=== PATIENT | female | born 1930 | race Caucasian/White ===

== ENCOUNTER 2016-09-18 09:20 | Emergency (ER) | payer OTHER, MEDICARE ==
--- NOTE | 2016-09-18 09:31 | PDOC ---
History of Present Illness - General Chief Complaint: Chest Pain Stated Complaint: CHEST PAIN Time Seen by Provider: 09/18/16 09:30 - History of Present Illness Initial Comments: 09/18/16 10:05 Chief complaint: Chest pain and dizziness History of present illness: Patient states that she woke up this morning feeling a little lightheaded, but this resolved almost immediately. She denies having had any chest pain, but it was reported by the staff at her facility that she had initially complained of chest pain. Ambulance personnel state that when they arrived there was no pain Review of systems: The patient suffers from dementia but appears able to convey her symptoms adequately. As noted above, she states that she felt some momentary dizziness when she woke up with this resolved almost immediately. States that she had no further symptoms. Specifically, denies chest pain, shortness of breath, abdominal pain, nausea, vomiting, diarrhea, visual or focal neurologic symptoms, unsteadiness of gait. She denies recent illnesses including URI symptoms, sore throat, cough. Past medical history: High blood pressure, COPD , Alzheimer's dementia, depression, uterine cancer, appendectomy. Social history: Assisted living facility, has her own residence, eats meals communally, daughter lives nearby and visits frequently, no past or present use of tobacco alcohol or nonprescription drugs. Family history: Reviewed and noncontributory Physical exam: Mildly confused but awake, fully cooperative, and cheerful. No acute distress Afebrile, vital signs normal PERRLA, fundi benign, ENT clear Neck supple without bruit mass or nodes Lungs clear to P&A bilaterally CV S1 and S2 normal without murmur rub or gallop pulses full and symmetric no JVD or edema no bruits Abdomen soft nontender without mass or organomegaly. Nondistended. Bowel sounds normal Extremities no CCE Skin clear, no rash, adequate turgor and what mucous membranes Neurological C2 to 12 intact. Strength full and symmetric. No focal sensory or motor deficits. Gait stable and unimpaired Impression: Brief episode this morning of possible lightheadedness and chest pain. However, because of patient's dementia, history may be questionable. At present, the patient looks fine and denies any symptoms. Plan: EKG and enzymes, CBC and chemistries, chest x-ray, further medical management depending on results. Observe. 09/18/16 10:12 Past History - Past Medical History Allergies/Adverse Reactions: Allergies Allergy/AdvReac Type Severity Reaction Status Date / Time Penicillins Allergy Verified 09/18/16 09:28 Home Medications: Ambulatory Orders Memantine HCl [Namenda -] 10 mg PO BID 02/18/14 Albuterol Sulfate [Proair Respiclick] 90 mcg IH PRN PRN 01/04/16 Ascorbate Calcium [Vitamin C] 500 mg PO DAILY 01/04/16 Aspirin [ASA -] 81 mg PO HS 01/04/16 Atenolol [Tenormin -] 50 mg PO DAILY 01/04/16 Cyanocobalamin (Vitamin B-12) [Vitamin B-12] 1,000 mcg PO DAILY 01/04/16 Desvenlafaxine Succinate [Pristiq ER] 50 mg PO DAILY 01/04/16 Levofloxacin [Levaquin] 500 mg PO DAILY 01/04/16 Melatonin/Pyridoxine [Melatonin 3 mg Tablet] 1 each PO HS 01/04/16 Mirtazapine 30 mg PO DAILY 01/04/16 Multivitamins [Tab-A-Vit -] 1 tab PO DAILY 01/04/16 [place]-3S/Dha/Epa/Fish Oil [Fish Oil 1,200 mg Softgel] 1 each PO DAILY 01/04/16 Prednisone 10 mg PO AM #21 tablet 01/04/16 Cancer: Yes (ENDOMETRIAL CANCER) Cardiac Disorders: Yes (PALPITATIONS) Dementia: Yes - Surgical History Appendectomy: Yes - Psycho/Social/Smoking Cessation Hx Anxiety: Yes Suicidal Ideation: No Smoking History: Never smoked Have you smoked in the past 12 months: No Hx Alcohol Use: No Drug/Substance Use Hx: No Substance Use Type: None *Physical Exam - Vital Signs Last Vital Signs Temp Pulse Resp BP Pulse Ox 98.2 F 74 18 130/72 96 09/18/16 09:21 09/18/16 09:21 09/18/16 09:21 09/18/16 09:21 09/18/16 09:21 ED Treatment Course - LABORATORY CBC & Chemistry Diagram: 09/18/16 09:33 09/18/16 09:33 - ADDITIONAL ORDERS Additional order review: Laboratory Results 09/18/16 09/18/16 09:33 09:33 Sodium 138 Potassium 4.0 Chloride 101 Carbon Dioxide 26 Anion Gap 11 BUN 16 D Creatinine 0.7 Creat Clearance w eGFR > 60 Random Glucose 114 H Calcium 8.9 Total Bilirubin 0.2 D AST 22 D ALT 22 D Alkaline Phosphatase 60 Creatine Kinase 126 Troponin I < 0.03 L Total Protein 6.3 L Albumin 3.6 09/18/16 09:33 RBC 4.45 MCV 88.2 MCHC 31.8 L RDW 13.1 MPV 8.2 Neutrophils % 65.9 Lymphocytes % 22.3 D Monocytes % 10.0 Eosinophils % 1.4 D Basophils % 0.4 - RADIOLOGY Radiology Studies Ordered: Category Date Time Status CHEST X-RAY PORTABLE* [RAD] Stat Radiology 09/18/16 09:31 Completed Medical Decision Making - Medical Decision Making 09/18/16 10:31 EKG reviewed: Normal sinus rhythm 73/m. Normal axes and intervals. No ST-T wave changes. Borderline left atrial enlargement. Otherwise normal EKG. No ischemic changes. Chest x-ray: No acute disease. No change from prior Laboratories: CBC and chemistries no significant abnormalities. Cardiac enzymes negative Patient remains asymptomatic, vital signs stable, without complaint upon observation. Discharged back to senior care to follow-up as needed. 09/18/16 11:38 *DC/Admit/Observation/Transfer Diagnosis at time of Disposition: Non-cardiac chest pain - Discharge Dispostion Disposition: HOME Condition at time of disposition: Improved Admit: No - Referrals Referrals: Patrick Rene MD [Staff Physician] - - Patient Instructions Printed Discharge Instructions: DI for Atypical Chest Pain
[2016-09-18 09:38] VITALS: TEMP 98.2; BMI 20.5
[2016-09-18 10:12] LABS: ALBUMIN 3.6 g/dl (3.5-5.0); ALK PHOS 60 U/L (32-92); ANION GAP 11 (8-16); BILIRUBIN,TOTAL 0.2 mg/dl (0.2-1.0); CALCIUM 8.9 mg/dl (8.4-10.2); CO2 26 mmol/L (22-28); CPK(DFH) 126 IU/L (26-140); CREATININE 0.7 mg/dl (0.6-1.3); GLUCOSE,RANDOM 114 mg/dl (74-106); SGOT/AST 22 U/L (10-42); SGPT/ALT 22 U/L (10-40); TOT PROT 6.3 g/dl (6.4-8.3)
[2016-09-18 10:21] LABS: BASOPHIL 0.4 % (0-2.0); EOSINOPHIL 1.4 % (0-4.5); MCHC 31.8 g/dl (32.0-36.0); MEAN CELL VOLUME 88.2 fl (80-96); MEAN PLT VOLUME 8.2 fl (7.5-11.1); NEUTROPHILS 65.9 % (42.8-82.8); PLATELET COUNT 235 K/MM3 (134-434); RDW 13.1 % (11.6-15.6); WHITE BLOOD COUNT 6.4 K/mm3 (4.0-10.0)
[2016-09-18 11:37] LABS: TROPONIN I (DFP) < 0.03 ng/ml (0.03-0.50)
[2016-09-18 11:47] VITALS: BP 109/64; PULSE 64
--- NOTE | 2016-09-18 15:47 | EKG ---
Test Reason : Blood Pressure : / mmHG Vent. Rate : 073 BPM Atrial Rate : 073 BPM P-R Int : 148 ms QRS Dur : 084 ms QT Int : 406 ms P-R-T Axes : 073 025 039 degrees QTc Int : 447 ms NORMAL SINUS RHYTHM POSSIBLE LEFT ATRIAL ENLARGEMENT BORDERLINE ECG NO PREVIOUS ECGS AVAILABLE Confirmed by MANUEL GAO MD ([id number] on 09/18/2016 3:46:37 PM Referred By: PIYUSH WHEATLEY Confirmed By:MANUEL GAO MD
== END 2016-09-18 12:04 | disposition home or self-care (01) ==
LOC: FER 09:20
DX: R07.89 Other chest pain (principal); F03.90 Unspecified dementia, unspecified severity, without behavioral disturbance, psychotic disturbance, mood disturbance, and anxiety; I10 Essential (primary) hypertension; J44.9 Chronic obstructive pulmonary disease, unspecified; G30.9 Alzheimer's disease, unspecified; F32.9 Major depressive disorder, single episode, unspecified; Z85.42 Personal history of malignant neoplasm of other parts of uterus; R00.2 Palpitations; Z79.82 Long term (current) use of aspirin
CPT/HCPCS: 36415; 71010-TC; 80053; 82550; 84484; 85025; 93005; 99283-25

== ENCOUNTER 2016-11-02 17:31 | Inpatient (IN) | payer OTHER, MEDICARE ==
[2016-11-02 17:41] VITALS: BMI 24.7
--- NOTE | 2016-11-02 18:30 | PDOC ---
History of Present Illness <Bari Hidalgo - Last Filed: 11/02/16 18:46> - History of Present Illness Initial Comments: 11/02/16 18:44 <Simran Brown - Last Filed: 11/02/16 18:27> - General History Source: Patient, EMS Exam Limitations: Dementia - History of Present Illness Initial Comments: 11/02/16 18:31 The patient is a 86 year old female, BIBA with a significant past medical history of HTN, COPD, Alzheimer's dementia, depressions, uterine cancer, appendectomy, who presents to the emergency department with left ankle pain after a fall today that may have been a syncopal episode today. The patient reports she was making lunch in the kitchen when she ending up on the floor, and unsure how, and injuring her left ankle. EMS, however, reports the patient was found in the bathroom with her ankle wedged up against the toilet. She cannot remember how she ended up on the floor. She reports having left ankle pain since the incident, worse with any weight bearing activities. She denies any neck, back, or head pain, and denies any other injuries at this time. She denies recent fevers, chills, headache or dizziness. She denies recent nausea, vomit, diarrhea or constipation. She denies any recent chest pain or SOB. She denies recent dysuria, frequency, urgency or hematuria. Patient is not on any blood thinners. The pt is not sure of what happened to her Allergies: Penicillins Past surgical history: See HPI. Social history: Nonsmoker. Denies EtOH use and drug use. <Bari Hidalgo - Last Filed: 11/02/16 18:31> <Simran Brown - Last Filed: 11/05/16 22:17> - General Chief Complaint: Injury Stated Complaint: LEFT ANKLE INJURY Time Seen by Provider: 11/02/16 18:01 Past History <Bari Hidalgo - Last Filed: 11/02/16 18:46> - Past Medical History Cancer: Yes (ENDOMETRIAL CANCER) Cardiac Disorders: Yes (PALPITATIONS) Dementia: Yes - Surgical History Appendectomy: Yes - Psycho/Social/Smoking Cessation Hx Anxiety: Yes Suicidal Ideation: No Smoking History: Never smoked Have you smoked in the past 12 months: No Information on smoking cessation initiated: No Hx Alcohol Use: No Drug/Substance Use Hx: No Substance Use Type: None <Simran Brown - Last Filed: 11/05/16 22:17> - Past Medical History Allergies/Adverse Reactions: Allergies Allergy/AdvReac Type Severity Reaction Status Date / Time Penicillins Allergy Verified 11/02/16 17:34 Home Medications: Ambulatory Orders Memantine HCl [Namenda -] 10 mg PO BID 02/18/14 Ascorbate Calcium [Vitamin C] 500 mg PO DAILY 01/04/16 Aspirin [ASA -] 81 mg PO HS 01/04/16 Atenolol [Tenormin -] 50 mg PO DAILY 01/04/16 Cyanocobalamin (Vitamin B-12) [Vitamin B-12] 1,000 mcg PO DAILY 01/04/16 Desvenlafaxine Succinate [Pristiq ER] 50 mg PO DAILY 01/04/16 Mirtazapine 30 mg PO DAILY 01/04/16 Multivitamins [Tab-A-Vit -] 1 tab PO DAILY 01/04/16 [place]-3S/Dha/Epa/Fish Oil [Fish Oil 1,200 mg Softgel] 1 each PO DAILY 01/04/16 Atorvastatin Ca [Lipitor] 10 mg PO HS 11/02/16 Review of Systems - Review of Systems Able to Perform ROS?: No (dementia) <Simran Brown - Last Filed: 11/05/16 22:17> *Physical Exam - Vital Signs Last Vital Signs Temp Pulse Resp BP Pulse Ox 99.7 F H 89 18 139/82 94 L 11/02/16 17:35 11/02/16 17:35 11/02/16 17:35 11/02/16 17:35 11/02/16 17:35 <Bari Hidalgo - Last Filed: 11/02/16 18:46> - Vital Signs Last Vital Signs Temp Pulse Resp BP Pulse Ox 99.7 F H 89 18 139/82 94 L 11/02/16 17:35 11/02/16 17:35 11/02/16 17:35 11/02/16 17:35 11/02/16 17:35 - Physical Exam Comments: 11/02/16 18:27 Physical exam Last Vital Signs Temp Pulse Resp BP Pulse Ox 99.7 F H 89 18 139/82 94 L 11/02/16 17:35 11/02/16 17:35 11/02/16 17:35 11/02/16 17:35 11/02/16 17:35 GENERAL: The patient is awake, alert, and answering simple questions HEAD: Normal with no signs of trauma. EYES: sclera anicteric, conjunctiva are normal. ENT:Moist mucous membranes. NECK: Normal range of motion, supple No C-spine tenderness BACK: No T-spine or LS-spine tenderness No posterior rib or CVA tenderness LUNGS: Breath sounds equal, clear to auscultation bilaterally. No wheezes, and no crackles. HEART: Regular rate and rhythm, normal S1 and S2 without murmur, rub or gallop. ABDOMEN: Soft, nontender, normoactive bowel sounds. No guarding, no rebound. No masses appreciated. EXTREMITIES: Normal range of motion, no edema. No clubbing or cyanosis. No cords, erythema, or tenderness. Full range of motion of the shoulders and elbows bilaterally Full range of motion of the hips and knees bilaterally The left ankle is ecchymotic swollen and tender into the left foot, diffusely Toes are warm NEUROLOGICAL: Patient with dementia, but alert and answering simple questions, and moving all extremities PSYCH: Normal mood, normal affect. SKIN: Warm, Dry, bruising is only noted on the left foot and ankle area <Simran Brown - Last Filed: 11/05/16 22:17> ED Treatment Course - LABORATORY CBC & Chemistry Diagram: 11/04/16 07:32 11/04/16 07:32 - RADIOLOGY Radiology Studies Ordered: Category Date Time Status ANKLE & FOOT-LEFT* [RAD] Stat Radiology 11/02/16 18:26 Ordered CHEST - PA [RAD] Stat Radiology 11/02/16 18:26 Ordered <Simran Brown - Last Filed: 11/05/16 22:17> Medical Decision Making - Medical Decision Making 11/02/16 19:06 86-year-old female most likely had a syncopal episode, and doesn't know how she ended up on the floor Her left ankle is swollen and tender and ecchymotic, but there is no evidence of head trauma SIGN OUT Case discussed in detail with oncoming Emergency Physician including history, physical exam and ancillary studies. Oncoming Emergency Physician has assumed care for the patient and will complete the evaluation and treatment. Transfer of care to Dr. Austin at 7 PM awaiting all studies <Simran Brown - Last Filed: 11/05/16 22:17> *DC/Admit/Observation/Transfer - Attestations Scribe Attestion: 11/02/16 18:31 Documentation prepared by Bari Hidalgo, acting as medical delivery driver for Simran Brown MD. <Bari Hidalgo - Last Filed: 11/02/16 18:46> - Discharge Dispostion Admit: Yes <Simran Brown - Last Filed: 11/05/16 22:17> Diagnosis at time of Disposition: Syncope Qualifiers: Syncope type: unspecified Qualified Code(s): R55 - Syncope and collapse Bimalleolar ankle fracture Qualifiers: Encounter type: initial encounter Fracture type: closed Laterality: left Qualified Code(s): S82.842A - Displaced bimalleolar fracture of left lower leg, initial encounter for closed fracture - Discharge Dispostion Condition at time of disposition: Fair
[2016-11-02 19:27] LABS: ALBUMIN 3.6 g/dl (3.5-5.0); ALK PHOS 56 U/L (32-92); ANION GAP 9 (8-16); BILIRUBIN,TOTAL 0.5 mg/dl (0.2-1.0); CALCIUM 8.4 mg/dl (8.4-10.2); CO2 25 mmol/L (22-28); CREATININE 0.7 mg/dl (0.6-1.3); GLUCOSE,RANDOM 99 mg/dl (74-106); SGOT/AST 44 U/L (10-42); SGPT/ALT 33 U/L (10-40); TOT PROT 6.3 g/dl (6.4-8.3)
[2016-11-02 19:32] LABS: MCH 29.5 pg (25.7-33.7); MCHC 33.8 g/dl (32.0-36.0); MEAN CELL VOLUME 87.1 fl (80-96); MEAN PLT VOLUME 8.4 fl (7.5-11.1); PLATELET COUNT 221 K/MM3 (134-434); RDW 13.4 % (11.6-15.6)
[2016-11-02 19:57] LABS: TROPONIN I (DFP) < 0.03 ng/ml (0.03-0.50)
[2016-11-02 19:58] LABS: CK MB 4.9 ng/ml (0.3-4.0)
[2016-11-02 20:02] LABS: CPK(DFH) 166 IU/L (26-140)
[2016-11-02 20:26] LABS: URINE APPEARANCE Clear; URINE BILIRUBIN Negative (NEGATIVE); URINE GLUCOSE (UA) Negative (NEGATIVE); URINE KETONE Negative (NEGATIVE); URINE LEUK ESTERASE Negative (NEGATIVE); URINE NITRITE Negative (NEGATIVE); URINE PROTEIN Negative (NEGATIVE); URINE UROBILINOGEN 0.2 E.U/dl (0.2-1.0)
[2016-11-02 20:27] LABS: URINE COLOR YELLOW
--- NOTE | 2016-11-02 20:51 | PDOC ---
*Physical Exam - Vital Signs Last Vital Signs Temp Pulse Resp BP Pulse Ox 99.7 F H 89 18 139/82 94 L 11/02/16 17:35 11/02/16 17:35 11/02/16 17:35 11/02/16 17:35 11/02/16 17:35 ED Treatment Course - LABORATORY CBC & Chemistry Diagram: 11/02/16 18:50 11/02/16 18:50 - ADDITIONAL ORDERS Additional order review: Laboratory Results 11/02/16 11/02/16 11/02/16 20:00 18:50 18:50 Sodium 133 L Potassium 4.1 Chloride 99 Carbon Dioxide 25 Anion Gap 9 BUN 17 Creatinine 0.7 Creat Clearance w eGFR > 60 Random Glucose 99 Calcium 8.4 Magnesium 2.0 Total Bilirubin 0.5 D AST 44 H D ALT 33 D Alkaline Phosphatase 56 Creatine Kinase 166 H D CK-MB (CK-2) 4.9 H Troponin I < 0.03 L Total Protein 6.3 L Albumin 3.6 Urine Color Yellow Urine Appearance Clear Urine pH 5.0 D Ur Specific [place] 1.020 Urine Protein Negative Urine Glucose (UA) Negative Urine Ketones Negative Urine Blood 1+ H Urine Nitrite Negative Urine Bilirubin Negative Urine Urobilinogen 0.2 e.u/dl Ur Leukocyte Esterase Negative 11/02/16 18:50 RBC 4.25 MCV 87.1 MCHC 33.8 RDW 13.4 MPV 8.4 Progress Note - Progress Note Progress Note: LT ANKLE DISLOCATION. REDUCED AND SPLINTED ADMIT TO DR. LULY DIETZ CONSULTING *DC/Admit/Observation/Transfer Diagnosis at time of Disposition: Syncope Qualifiers: Syncope type: unspecified Qualified Code(s): R55 - Syncope and collapse Bimalleolar fracture Qualifiers: Encounter type: initial encounter Fracture type: closed Laterality: left Qualified Code(s): S82.842A - Displaced bimalleolar fracture of left lower leg, initial encounter for closed fracture - Discharge Dispostion Condition at time of disposition: Fair Admit: Yes
[2016-11-02] MEDS ORDERED: ACETAMINOPHEN 325 MG TABLET (FP) PO ONE (22:00)
[2016-11-02 22:05] LABS: URINE BLOOD 1 (NEGATIVE)
[2016-11-02 22:06] LABS: URINE BACTERIA 1+ /hpf (NEGATIVE); URINE WBC 0-3 (3-5)
[2016-11-02] MEDS ORDERED: ACETAMINOPHEN 325 MG TABLET (FP) ONE (22:12)
[2016-11-03 02:48] LABS: TROPONIN I < 0.02 ng/ml (0.00-0.05)
--- NOTE | 2016-11-03 09:39 | CON.CARD ---
Consult Consult Specialty:: Cardiology Referred by:: Megan Hernandez MD Reason for Consultation:: Post fall, possible syncope - History of Present Illness Chief Complaint: Post fall, possible syncope History of Present Illness: The patient is a 86 year old female, BIBA with a significant past medical history of HTN, COPD, Alzheimer's dementia, depressions, uterine cancer, appendectomy, who presents to the emergency department with left ankle pain after a fall yesterday possible syncopal episode. The patient reports she was making lunch in the kitchen and ended up on the floor, and unsure how, and injuring her left ankle. She denies any neck, back, or head pain, and denies any other injuries. She denies recent fevers, chills, headache or dizziness. She denies recent nausea, vomit, diarrhea or constipation. She denies any recent chest pain or SOB, orthopnea, PND or LE edema. She denies recent dysuria , frequency, urgency or hematuria. Patient is not on any blood thinners. The pt is not sure of what happened to her, does not recall prodromal sxs. Allergies: Penicillins Past surgical history: See HPI. Social history: Nonsmoker. Denies EtOH use and drug use. - History Source History Provided By: Patient Limitations to Obtaining History: Dementia - Past Medical History [employer]: Yes: Alzheimer's, Dementia Cardio/Vascular: Yes: HTN, Hyperlipdemia - Alcohol/Substance Use Hx Alcohol Use: No - Smoking History Smoking history: Never smoked Have you smoked in the past 12 months: No Home Medications - Allergies Allergies/Adverse Reactions: Allergies Allergy/AdvReac Type Severity Reaction Status Date / Time Penicillins Allergy Verified 11/02/16 17:34 - Home Medications Home Medications: Ambulatory Orders Memantine HCl [Namenda -] 10 mg PO BID 02/18/14 Ascorbate Calcium [Vitamin C] 500 mg PO DAILY 01/04/16 Aspirin [ASA -] 81 mg PO HS 01/04/16 Atenolol [Tenormin -] 50 mg PO DAILY 01/04/16 Cyanocobalamin (Vitamin B-12) [Vitamin B-12] 1,000 mcg PO DAILY 01/04/16 Desvenlafaxine Succinate [Pristiq ER] 50 mg PO DAILY 01/04/16 Mirtazapine 30 mg PO DAILY 01/04/16 Multivitamins [Tab-A-Vit -] 1 tab PO DAILY 01/04/16 [place]-3S/Dha/Epa/Fish Oil [Fish Oil 1,200 mg Softgel] 1 each PO DAILY 01/04/16 Atorvastatin Ca [Lipitor] 10 mg PO HS 11/02/16 Review of Systems - Review of Systems Musculoskeletal: reports: Joint Pain (Left ankle pain) Vital Signs: Vital Signs Temperature 98.7 F 11/03/16 06:00 Pulse Rate 91 H 11/03/16 06:00 Respiratory Rate 18 11/03/16 06:00 Blood Pressure 136/63 11/03/16 06:00 O2 Sat by Pulse Oximetry (%) 95 11/03/16 06:00 Constitutional: Yes: No Distress, Calm Neck: Yes: Supple Respiratory: Yes: Regular, CTA Bilaterally Gastrointestinal: Yes: Normal Bowel Sounds, Soft Cardiovascular: Yes: Regular Rate and Rhythm JVD: No Carotid Bruit: No Heart Sounds: Yes: S1, S2 Murmur: Yes: Systolic Murmur, Grade 1 Musculoskeletal: Yes: Joint Swelling (Left ankle splinted) Edema: No - Other Data Labs, Other Data: Troponin, BNP 11/03/16 00:30 Troponin I < 0.02 Troponin, BNP 11/03/16 00:30 Troponin I < 0.02 NSR @ 91 PVC Imaging - Results Chest X-ray: Report Reviewed (NAD) X-ray: Report Reviewed (Left ankle fracture) Cat Scan: Report Reviewed (No sig changes) Problem List - Problems (1) Bimalleolar ankle fracture Code(s): S82.843A - DISPLACED BIMALLEOLAR FRACTURE OF UNSP LOWER LEG, INIT Qualifiers: Encounter type: initial encounter Fracture type: closed Laterality : left Qualified Code(s): S82.842A - Displaced bimalleolar fracture of left lower leg, initial encounter for closed fracture (2) Syncope Code(s): R55 - SYNCOPE AND COLLAPSE Qualifiers: Syncope type: unspecified Qualified Code(s): R55 - Syncope and collapse (3) Fall from standing Code(s): W19.XXXA - UNSPECIFIED FALL, INITIAL ENCOUNTER Qualifiers: Encounter type: initial encounter Qualified Code(s): W19.XXXA - Unspecified fall, initial encounter (4) Hypertension Code(s): I10 - ESSENTIAL (PRIMARY) HYPERTENSION Qualifiers: Hypertension type: essential hypertension Qualified Code(s): I10 - Essential (primary) hypertension (5) Hyperlipidemia Code(s): E78.5 - HYPERLIPIDEMIA, UNSPECIFIED Qualifiers: Hyperlipidemia type: pure hypercholesterolemia Qualified Code(s): E78.00 - Pure hypercholesterolemia, unspecified; E78.0 - Pure hypercholesterolemia (6) Premature ventricular contractions Code(s): I49.3 - VENTRICULAR PREMATURE DEPOLARIZATION Assessment/Plan 1. Post fall, possible syncope 2. Left ankle fracture post immobilization 3. HTN 4. Hyperlipidemia 5. Dementia Alzheimers type 6. Premature ventricular contraction P:1. Ruled out [place], tele monitor to r/o sustained arrhythmia 2. Echocardiogram to assess ventricular and valve fxn 3. Continue ASA 81 qd, Atenolol 50 qd, Lipitor 10 qhs 4. Ortho f/u, analgesia as needed 5. Thank you for consultative opportunity
[2016-11-03 09:57] LABS: BASOPHIL 0.1 % (0-2.0); EOSINOPHIL 0.2 % (0-4.5); MCH 29.6 pg (25.7-33.7); MCHC 33.5 g/dl (32.0-36.0); MEAN CELL VOLUME 88.4 fl (80-96); MEAN PLT VOLUME 8.9 fl (7.5-11.1); PLATELET COUNT 188 K/MM3 (134-434); RDW 13.2 % (11.6-15.6); WHITE BLOOD COUNT 5.8 K/mm3 (4.0-10.0)
[2016-11-03] MEDS: HEPARIN NA (PORCINE) 5,000 UNITS/ML 1ML VIAL SQ SCH ×2 (10:00→21:12)
[2016-11-03 10:20] LABS: ALBUMIN 3.4 g/dl (3.5-5.0); ALK PHOS 53 U/L (32-92); ANION GAP 9 (8-16); BILIRUBIN,TOTAL 0.5 mg/dl (0.2-1.0); CALCIUM 8.1 mg/dl (8.4-10.2); CO2 26 mmol/L (22-28); CREATININE 0.6 mg/dl (0.6-1.3); GLUCOSE,RANDOM 99 mg/dl (74-106); SGOT/AST 49 U/L (10-42); SGPT/ALT 38 U/L (10-40)
--- NOTE | 2016-11-03 12:39 | EKG ---
Test Reason : Blood Pressure : / mmHG Vent. Rate : 091 BPM Atrial Rate : 091 BPM P-R Int : 142 ms QRS Dur : 070 ms QT Int : 372 ms P-R-T Axes : 063 025 045 degrees QTc Int : 457 ms POOR DATA QUALITY, INTERPRETATION MAY BE ADVERSELY AFFECTED SINUS RHYTHM WITH OCCASIONAL PREMATURE VENTRICULAR COMPLEXES NONSPECIFIC ST AND T WAVE ABNORMALITY WHEN COMPARED WITH ECG OF 18-SEP-2016 09:32, PREMATURE VENTRICULAR COMPLEXES ARE NOW PRESENT Confirmed by MD DINA, EVELYN ([id number]) on 11/03/2016 12:39:13 PM Referred By: GINNA Confirmed By:EVELYN ARROYO MD
--- NOTE | 2016-11-03 13:20 | HP ---
Admitting History and Physical - Primary Care Physician PCP: Megan Hernandez - Admission History of Present Illness: The patient is a 86 year old female, BIBA with a significant past medical history of HTN, COPD, Alzheimer's dementia, depressions, uterine cancer, appendectomy, who presents to the emergency department with left ankle pain after a fall today that may have been a syncopal episode today. The patient reports she was making lunch in the kitchen when she ending up on the floor, and unsure how, and injuring her left ankle. as per ems , she was found in the bathroom with her ankle wedged up against the toilet. 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 Cardiovascular: Yes: HTN, Hyperlipdemia - Smoking History Smoking history: Never smoked Have you smoked in the past 12 months: No - Alcohol/Substance Use Hx Alcohol Use: No Home Medications - Allergies Allergies/Adverse Reactions: Allergies Allergy/AdvReac Type Severity Reaction Status Date / Time Penicillins Allergy Verified 11/02/16 17:34 - Home Medications Home Medications: Ambulatory Orders Memantine HCl [Namenda -] 10 mg PO BID 02/18/14 Ascorbate Calcium [Vitamin C] 500 mg PO DAILY 01/04/16 Aspirin [ASA -] 81 mg PO HS 01/04/16 Atenolol [Tenormin -] 50 mg PO DAILY 01/04/16 Cyanocobalamin (Vitamin B-12) [Vitamin B-12] 1,000 mcg PO DAILY 01/04/16 Desvenlafaxine Succinate [Pristiq ER] 50 mg PO DAILY 01/04/16 Mirtazapine 30 mg PO DAILY 01/04/16 Multivitamins [Tab-A-Vit -] 1 tab PO DAILY 01/04/16 Ramsey-3S/Dha/Epa/Fish Oil [Fish Oil 1,200 mg Softgel] 1 each PO DAILY 01/04/16 Atorvastatin Ca [Lipitor] 10 mg PO HS 11/02/16 Physical Examination Vital Signs: Vital Signs Temperature 98.7 F 11/03/16 06:00 Pulse Rate 91 H 11/03/16 06:00 Respiratory Rate 18 11/03/16 06:00 Blood Pressure 136/63 11/03/16 06:00 O2 Sat by Pulse Oximetry (%) 95 11/03/16 06:00 Constitutional: Yes: No Distress HENT: Yes: Atraumatic Neck: Yes: Supple Cardiovascular: Yes: Regular Rate and Rhythm Respiratory: Yes: CTA Bilaterally Gastrointestinal: Yes: Normal Bowel Sounds Extremities: Yes: Other (left ankle in cast) Labs: CBC, BMP 11/03/16 08:00 11/03/16 08:00 Problem List - Problems (1) Bimalleolar ankle fracture Code(s): S82.843A - DISPLACED BIMALLEOLAR FRACTURE OF UNSP LOWER LEG, INIT Qualifiers: Encounter type: initial encounter Fracture type: closed Laterality : left Qualified Code(s): S82.842A - Displaced bimalleolar fracture of left lower leg, initial encounter for closed fracture (2) Hyperlipidemia Code(s): E78.5 - HYPERLIPIDEMIA, UNSPECIFIED Qualifiers: Hyperlipidemia type: pure hypercholesterolemia Qualified Code(s): E78.00 - Pure hypercholesterolemia, unspecified; E78.0 - Pure hypercholesterolemia (3) Hypertension Code(s): I10 - ESSENTIAL (PRIMARY) HYPERTENSION Qualifiers: Hypertension type: essential hypertension Qualified Code(s): I10 - Essential (primary) hypertension (4) Syncope Code(s): R55 - SYNCOPE AND COLLAPSE Qualifiers: Syncope type: unspecified Qualified Code(s): R55 - Syncope and collapse Assessment/Plan Laboratory Tests 11/02/16 11/02/16 11/02/16 18:50 18:50 18:50 WBC 6.0 RBC 4.25 Hgb 12.5 Hct 37.0 MCV 87.1 MCHC 33.8 RDW 13.4 Plt Count 221 MPV 8.4 Neutrophils % Lymphocytes % Monocytes % Eosinophils % Basophils % Sodium 133 L Potassium 4.1 Chloride 99 Carbon Dioxide 25 Anion Gap 9 BUN 17 Creatinine 0.7 Creat Clearance w eGFR > 60 Random Glucose 99 Calcium 8.4 Magnesium 2.0 Total Bilirubin 0.5 D AST 44 H D ALT 33 D Alkaline Phosphatase 56 Creatine Kinase 166 H D CK-MB (CK-2) 4.9 H Troponin I < 0.03 L Total Protein 6.3 L Albumin 3.6 Urine Color Urine Appearance Urine pH Ur Specific [place] Urine Protein Urine Glucose (UA) Urine Ketones Urine Blood Urine Nitrite Urine Bilirubin Urine Urobilinogen Ur Leukocyte Esterase Urine RBC Urine WBC Ur Epithelial Cells Urine Bacteria 11/02/16 11/03/16 11/03/16 20:00 00:30 08:00 WBC 5.8 RBC 4.12 Hgb 12.2 Hct 36.4 MCV 88.4 MCHC 33.5 RDW 13.2 Plt Count 188 MPV 8.9 Neutrophils % 65.0 Lymphocytes % 19.0 Monocytes % 15.7 H Eosinophils % 0.2 D Basophils % 0.1 Sodium Potassium Chloride Carbon Dioxide Anion Gap BUN Creatinine Creat Clearance w eGFR Random Glucose Calcium Magnesium Total Bilirubin AST ALT Alkaline Phosphatase Creatine Kinase 182 CK-MB (CK-2) 2.755 Troponin I < 0.02 Total Protein Albumin Urine Color Yellow Urine Appearance Clear Urine pH 5.0 D Ur Specific [place] 1.020 Urine Protein Negative Urine Glucose (UA) Negative Urine Ketones Negative Urine Blood 1 H Urine Nitrite Negative Urine Bilirubin Negative Urine Urobilinogen 0.2 e.u/dl Ur Leukocyte Esterase Negative Urine RBC 3-5 Urine WBC 0-3 Ur Epithelial Cells Few Urine Bacteria 1+ 11/03/16 08:00 WBC RBC Hgb Hct MCV MCHC RDW Plt Count MPV Neutrophils % Lymphocytes % Monocytes % Eosinophils % Basophils % Sodium 135 L Potassium 4.0 Chloride 100 Carbon Dioxide 26 Anion Gap 9 BUN 14 Creatinine 0.6 Creat Clearance w eGFR > 60 Random Glucose 99 Calcium 8.1 L Magnesium Total Bilirubin 0.5 AST 49 H ALT 38 Alkaline Phosphatase 53 Creatine Kinase CK-MB (CK-2) Troponin I Total Protein 6.0 L Albumin 3.4 L Urine Color Urine Appearance Urine pH Ur Specific [place] Urine Protein Urine Glucose (UA) Urine Ketones Urine Blood Urine Nitrite Urine Bilirubin Urine Urobilinogen Ur Leukocyte Esterase Urine RBC Urine WBC Ur Epithelial Cells Urine Bacteria Active Medications Generic Name Dose Route Start Last Admin Trade Name Latanya PRN Reason Stop Dose Admin Acetaminophen 650 mg 11/02/16 23:48 Tylenol - PO Q6H PRN FEVER OR PAIN Heparin Sodium (Porcine) 5,000 unit 11/03/16 10:00 Heparin - SQ BID ESTELITA Hydromorphone HCl 1 mg 11/02/16 23:48 Dilaudid Injection - IVPB Q3H PRN PAIN 1.fall /syncope left ankle fracture awaiting ortho seen by cardio prn pain meds dvt ppx 2.htn on meds 3.dementia 4.hld continue home meds
[2016-11-03] MEDS: MEMANTINE HCL 10 MG TABLET (FP) PO SCH ×2 (13:32→21:12)
[2016-11-03] MEDS: MIRTAZAPINE 15 MG TABLET (FP) PO SCH (13:33)
[2016-11-03] MEDS: ATENOLOL 50 MG TABLET (FP) PO SCH (13:33)
[2016-11-03] MEDS ORDERED: LORazepam 0.5 MG TABLET PO ONE (19:30)
[2016-11-03] MEDS: ATORVASTATIN CA 10 MG TABLET (FP) PO SCH (21:12)
[2016-11-04] MEDS: HYDROmorphone HCL CARPU-JECT 1 MG/1 ML DISP.SYRIN IVPB PRN ×2 (02:21→20:51)
[2016-11-04] MEDS: ACETAMINOPHEN 325 MG TABLET (FP) PO PRN ×2 (06:26→20:36)
[2016-11-04 07:44] LABS: MCH 29.6 pg (25.7-33.7); MCHC 34.2 g/dl (32.0-36.0); MEAN CELL VOLUME 86.7 fl (80-96); MEAN PLT VOLUME 8.1 fl (7.5-11.1); PLATELET COUNT 182 K/MM3 (134-434); WHITE BLOOD COUNT 5.6 K/mm3 (4.0-10.0)
[2016-11-04 07:53] LABS: CALCIUM 7.3 mg/dl (8.4-10.2); CREATININE 0.6 mg/dl (0.6-1.3)
[2016-11-04] MEDS: MIRTAZAPINE 15 MG TABLET (FP) PO SCH (09:53)
[2016-11-04] MEDS: HEPARIN NA (PORCINE) 5,000 UNITS/ML 1ML VIAL SQ SCH ×2 (09:54→21:26)
[2016-11-04] MEDS: MEMANTINE HCL 10 MG TABLET (FP) PO SCH ×2 (09:54→21:26)
[2016-11-04] MEDS: ATENOLOL 50 MG TABLET (FP) PO SCH (09:55)
--- NOTE | 2016-11-04 10:46 | PN ---
Progress Note, Physician Chief Complaint: Events noted Awake and alert Does not remember the event History of Present Illness: Patient was seen and examined. Chart was reviewed Denies chest pain, SOB or palpitations Left lower extremity cast applied - Current Medication List Current Medications: Active Medications Acetaminophen (Tylenol -) 650 mg PO Q6H PRN PRN Reason: FEVER OR PAIN Last Admin: 11/04/16 06:26 Dose: 650 mg Atenolol (Tenormin -) 50 mg PO DAILY [facility] Last Admin: 11/04/16 09:55 Dose: 50 mg Atorvastatin Calcium (Lipitor -) 10 mg PO HS [facility] Last Admin: 11/03/16 21:12 Dose: 10 mg Heparin Sodium (Porcine) (Heparin -) 5,000 unit SQ BID [facility] Last Admin: 11/04/16 09:54 Dose: 5,000 unit Hydromorphone HCl (Dilaudid Injection -) 1 mg IVPB Q3H PRN PRN Reason: PAIN Last Admin: 11/04/16 02:21 Dose: 1 mg Memantine (Namenda -) 10 mg PO BID [facility] Last Admin: 11/04/16 09:54 Dose: 10 mg Mirtazapine (Remeron -) 30 mg PO DAILY [facility] Last Admin: 11/04/16 09:53 Dose: 30 mg - Objective Vital Signs: Vital Signs Temperature 100.4 F H 11/04/16 05:30 Pulse Rate 97 H 11/04/16 05:30 Respiratory Rate 20 11/04/16 05:30 Blood Pressure 147/76 11/04/16 05:30 O2 Sat by Pulse Oximetry (%) 94 L 11/03/16 22:08 Neck: Yes: Supple Cardiovascular: Yes: Regular Rate and Rhythm, Murmur (Soft SM), S1, S2 Respiratory: Yes: CTA Bilaterally Gastrointestinal: Yes: Normal Bowel Sounds, Soft. No: Tenderness Extremities: Yes: Other (Cast applied to left ankle) Edema: No Additional Findings/Remarks: - Review of Systems Constitutional: denies: Chills, Fever Cardiovascular: denies: Chest Pain, Palpitations, Shortness of Breath Respiratory: denies: Cough, Hemoptysis, Orthopnea, PND, SOB, SOB on Exertion Gastrointestinal: denies: Melena, Nausea. denies: Abdominal Pain, Constipation , Diarrhea, Rectal Bleeding, Vomiting Genitourinary: denies: Dysuria Neurological: reports: Syncope. denies: Dizziness, Headache, Seizure Labs: CBC, BMP 11/04/16 07:32 11/04/16 07:32 Problem List - Problems (1) Bimalleolar ankle fracture Code(s): S82.843A - DISPLACED BIMALLEOLAR FRACTURE OF UNSP LOWER LEG, INIT Qualifiers: Encounter type: initial encounter Fracture type: closed Laterality : left Qualified Code(s): S82.842A - Displaced bimalleolar fracture of left lower leg, initial encounter for closed fracture (2) Hyperlipidemia Code(s): E78.5 - HYPERLIPIDEMIA, UNSPECIFIED Qualifiers: Hyperlipidemia type: pure hypercholesterolemia Qualified Code(s): E78.00 - Pure hypercholesterolemia, unspecified; E78.0 - Pure hypercholesterolemia (3) Hypertension Code(s): I10 - ESSENTIAL (PRIMARY) HYPERTENSION Qualifiers: Hypertension type: essential hypertension Qualified Code(s): I10 - Essential (primary) hypertension (4) Premature ventricular contractions Code(s): I49.3 - VENTRICULAR PREMATURE DEPOLARIZATION (5) Syncope Code(s): R55 - SYNCOPE AND COLLAPSE Qualifiers: Syncope type: unspecified Qualified Code(s): R55 - Syncope and collapse (6) Dementia Code(s): F03.90 - UNSPECIFIED DEMENTIA WITHOUT BEHAVIORAL DISTURBANCE Qualifiers: Dementia type: Alzheimer's disease Alzheimer's disease onset: early- onset Dementia behavioral disturbance: without behavioral disturbance Qualified Code(s): G30.0 - Alzheimer's disease with early onset; F02.81 - Dementia in other diseases classified elsewhere with behavioral disturbance Assessment/Plan 1. Post fall with likely syncopal episode, etiology to be determined 2. Left ankle fracture post immobilization 3. HTN 4. Hyperlipidemia 5. Dementia - Alzheimers type 6. Premature ventricular contraction PLAN: 1. Transthoracic echocardiography revealed normal left ventricular systolic function, trace MR and trace to mild TR 2. Await Orthopedic evaluation and await further plan. If patient to go for surgery, there would be no absolute contraindication in proceeding with it in view of absence of ischemic symptoms, decompensated congestive heart failure or malignant arrhythmias. 3. Continue ASA 81 mg qd, Atenolol 50 mg qd and Lipitor 10 mg qhs 4. 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
--- NOTE | 2016-11-04 18:20 | PN ---
Progress Note, Physician - Current Medication List Current Medications: Active Medications Acetaminophen (Tylenol -) 650 mg PO Q6H PRN PRN Reason: FEVER OR PAIN Last Admin: 11/04/16 06:26 Dose: 650 mg Atenolol (Tenormin -) 50 mg PO DAILY [facility] Last Admin: 11/04/16 09:55 Dose: 50 mg Atorvastatin Calcium (Lipitor -) 10 mg PO HS [facility] Last Admin: 11/03/16 21:12 Dose: 10 mg Heparin Sodium (Porcine) (Heparin -) 5,000 unit SQ BID [facility] Last Admin: 11/04/16 09:54 Dose: 5,000 unit Hydromorphone HCl (Dilaudid Injection -) 1 mg IVPB Q3H PRN PRN Reason: PAIN Last Admin: 11/04/16 02:21 Dose: 1 mg Memantine (Namenda -) 10 mg PO BID [facility] Last Admin: 11/04/16 09:54 Dose: 10 mg Mirtazapine (Remeron -) 30 mg PO DAILY [facility] Last Admin: 11/04/16 09:53 Dose: 30 mg - Objective Vital Signs: Vital Signs Temperature 98.9 F 11/04/16 13:56 Pulse Rate 74 11/04/16 13:56 Respiratory Rate 17 11/04/16 13:56 Blood Pressure 115/54 11/04/16 13:56 O2 Sat by Pulse Oximetry (%) 96 11/04/16 13:56 Constitutional: Yes: No Distress HENT: Yes: Atraumatic Neck: Yes: Supple Cardiovascular: Yes: Regular Rate and Rhythm Respiratory: Yes: CTA Bilaterally Gastrointestinal: Yes: Normal Bowel Sounds Extremities: Yes: Other (left ankle in splint) Neurological: Yes: Alert, Oriented Labs: CBC, BMP 11/04/16 07:32 11/04/16 07:32 Problem List - Problems (1) Bimalleolar ankle fracture Code(s): S82.843A - DISPLACED BIMALLEOLAR FRACTURE OF UNSP LOWER LEG, INIT Qualifiers: Encounter type: initial encounter Fracture type: closed Laterality : left Qualified Code(s): S82.842A - Displaced bimalleolar fracture of left lower leg, initial encounter for closed fracture (2) Hyperlipidemia Code(s): E78.5 - HYPERLIPIDEMIA, UNSPECIFIED Qualifiers: Hyperlipidemia type: pure hypercholesterolemia Qualified Code(s): E78.00 - Pure hypercholesterolemia, unspecified; E78.0 - Pure hypercholesterolemia (3) Hypertension Code(s): I10 - ESSENTIAL (PRIMARY) HYPERTENSION Qualifiers: Hypertension type: essential hypertension Qualified Code(s): I10 - Essential (primary) hypertension (4) Syncope Code(s): R55 - SYNCOPE AND COLLAPSE Qualifiers: Syncope type: unspecified Qualified Code(s): R55 - Syncope and collapse Assessment/Plan 1.fall /syncope left ankle fracture awaiting ortho seen by cardio prn pain meds pt seen and cleared by cardiology for surgery,olease review the consult
[2016-11-04] MEDS ORDERED: LORazepam 1 MG TABLET PO PRN (19:56)
[2016-11-04] MEDS: POTASSIUM CHLORIDE TABS 20 MEQ TABLET.ER (FP) PO SCH (20:37)
[2016-11-04] MEDS: ATORVASTATIN CA 10 MG TABLET (FP) PO SCH (21:26)
[2016-11-05] MEDS: HYDROmorphone HCL CARPU-JECT 1 MG/1 ML DISP.SYRIN IVPB PRN ×3 (05:21→22:56)
[2016-11-05] MEDS ORDERED: ALBUTEROL SO4 0.083% IH SOL 2.5 MG/3 ML VIAL.NEB. NEB ONE ×2 (07:34→11:50)
[2016-11-05] MEDS: MIRTAZAPINE 15 MG TABLET (FP) PO SCH (09:45)
[2016-11-05] MEDS: ATENOLOL 50 MG TABLET (FP) PO SCH (09:45)
[2016-11-05] MEDS: ACETAMINOPHEN 325 MG TABLET (FP) PO PRN (09:46)
[2016-11-05] MEDS: HEPARIN NA (PORCINE) 5,000 UNITS/ML 1ML VIAL SQ SCH (09:47)
[2016-11-05] MEDS: MEMANTINE HCL 10 MG TABLET (FP) PO SCH ×2 (09:47→21:36)
[2016-11-05] MEDS: POTASSIUM CHLORIDE TABS 20 MEQ TABLET.ER (FP) PO SCH (09:48)
[2016-11-05] MEDS ORDERED: POTASSIUM CHLORIDE TABS 20 MEQ TABLET.ER (FP) PO SCH (10:00)
[2016-11-05] MEDS ORDERED: HYDROmorphone HCL CARPU-JECT 2 MG/1 ML DISP.SYRIN ONE ×2 (16:15→22:50)
--- NOTE | 2016-11-05 17:22 | PN ---
Progress Note, Physician - Current Medication List Current Medications: Active Medications Acetaminophen (Tylenol -) 650 mg PO Q6H PRN PRN Reason: FEVER OR PAIN Last Admin: 11/05/16 09:46 Dose: 650 mg Atenolol (Tenormin -) 50 mg PO DAILY [facility] Last Admin: 11/05/16 09:45 Dose: 50 mg Atorvastatin Calcium (Lipitor -) 10 mg PO HS [facility] Last Admin: 11/04/16 21:26 Dose: 10 mg Heparin Sodium (Porcine) (Heparin -) 5,000 unit SQ BID [facility] Last Admin: 11/05/16 09:47 Dose: 5,000 unit Hydromorphone HCl (Dilaudid Injection -) 1 mg IVPB Q3H PRN PRN Reason: PAIN Last Admin: 11/05/16 16:32 Dose: 1 mg Lorazepam (Ativan -) 1 mg PO HS PRN Memantine (Namenda -) 10 mg PO BID [facility] Last Admin: 11/05/16 09:47 Dose: 10 mg Mirtazapine (Remeron -) 30 mg PO DAILY [facility] Last Admin: 11/05/16 09:45 Dose: 30 mg Potassium Chloride (K-Dur -) 40 meq PO DAILY [facility] Last Admin: 11/05/16 09:48 Dose: 40 meq - Objective Vital Signs: Vital Signs Temperature 98.2 F 11/05/16 13:00 Pulse Rate 64 11/05/16 13:00 Respiratory Rate 18 11/05/16 13:00 Blood Pressure 115/52 11/05/16 13:00 O2 Sat by Pulse Oximetry (%) 96 11/05/16 07:11 Constitutional: Yes: No Distress HENT: Yes: Atraumatic Neck: Yes: Supple Cardiovascular: Yes: Regular Rate and Rhythm Respiratory: Yes: CTA Bilaterally Gastrointestinal: Yes: Normal Bowel Sounds Extremities: Yes: Other (LEFT ANKLE CAST) Neurological: Yes: Alert, Oriented Labs: CBC, BMP 11/04/16 07:32 11/04/16 07:32 Problem List - Problems (1) Bimalleolar ankle fracture Code(s): S82.843A - DISPLACED BIMALLEOLAR FRACTURE OF UNSP LOWER LEG, INIT Qualifiers: Encounter type: initial encounter Fracture type: closed Laterality : left Qualified Code(s): S82.842A - Displaced bimalleolar fracture of left lower leg, initial encounter for closed fracture (2) Hyperlipidemia Code(s): E78.5 - HYPERLIPIDEMIA, UNSPECIFIED Qualifiers: Hyperlipidemia type: pure hypercholesterolemia Qualified Code(s): E78.00 - Pure hypercholesterolemia, unspecified; E78.0 - Pure hypercholesterolemia (3) Hypertension Code(s): I10 - ESSENTIAL (PRIMARY) HYPERTENSION Qualifiers: Hypertension type: essential hypertension Qualified Code(s): I10 - Essential (primary) hypertension (4) Syncope Code(s): R55 - SYNCOPE AND COLLAPSE Qualifiers: Syncope type: unspecified Qualified Code(s): R55 - Syncope and collapse Assessment/Plan 1.fall /syncope left ankle fracture FOR SURGERY IN AM prn pain meds pt seen and cleared by cardiology for surgery
[2016-11-05] MEDS ORDERED: LORazepam 0.5 MG TABLET ONE (21:33)
[2016-11-05] MEDS: ATORVASTATIN CA 10 MG TABLET (FP) PO SCH (21:36)
[2016-11-06] MEDS ORDERED: LORazepam 0.5 MG TABLET PO PRN (07:38)
[2016-11-06 08:10] LABS: BASOPHIL 0.2 % (0-2.0); EOSINOPHIL 0.7 % (0-4.5); MCH 28.8 pg (25.7-33.7); MEAN CELL VOLUME 87.1 fl (80-96); MEAN PLT VOLUME 8.7 fl (7.5-11.1); NEUTROPHILS 47.6 % (42.8-82.8); PLATELET COUNT 191 K/MM3 (134-434); RDW 13.2 % (11.6-15.6); WHITE BLOOD COUNT 4.1 K/mm3 (4.0-10.0)
[2016-11-06 08:42] LABS: ALBUMIN 3.2 g/dl (3.5-5.0); ALK PHOS 45 U/L (32-92); ANION GAP 6 (8-16); BILIRUBIN,TOTAL 0.4 mg/dl (0.2-1.0); CALCIUM 7.9 mg/dl (8.4-10.2); CO2 29 mmol/L (22-28); CREATININE 0.6 mg/dl (0.6-1.3); GLUCOSE,RANDOM 93 mg/dl (74-106); SGOT/AST 46 U/L (10-42); SGPT/ALT 35 U/L (10-40); TOT PROT 5.9 g/dl (6.4-8.3)
[2016-11-06 08:54] LABS: INR 1.16 (0.82-1.09)
[2016-11-06] MEDS ORDERED: MIDAZOLAM HCL 2 MG/2 ML SINGLE DOSE VIAL ONE (08:56)
[2016-11-06] MEDS ORDERED: DEXAMETHASONE SOD PHOSPHATE/PF 10 MG/ML SDV ONE (08:56)
--- NOTE | 2016-11-06 09:17 | CONS ---
REQUESTING PHYSICIAN: Megan Hernandez MD DATE OF CONSULTATION: 11/03/2016 TIME OF THE CONSULTATION: Approximately 10:00 p.m. REASON FOR CONSULTATION: For evaluation of ankle fracture. HISTORY OF PRESENT ILLNESS: The patient is an 86-year-old female, suffers from dementia, a resident at the [facility], who was brought to the emergency room where she was evaluated, had a bimalleolar ankle fracture with posterior subluxation. 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 We have been consulted to assess the patient for her orthopedic care. Patient was examined and interviewed. Chart and x-rays were reviewed. IMPRESSION: Displaced bimalleolar ankle fracture, patient with dementia. PLAN: We are going to speak to the patient and try and reach out to the patients daughter, Karla, to go over treatment options including operative and nonoperative treatment at length with the patients daughter, and once she is cleared medically, which she currently is not, we will discuss both closed treatment and operative treatment with patients daughter, and they will then proceed from there. VICKY DIETZ M.D. /[id number]
[2016-11-06] MEDS ORDERED: LIDOCAINE HCL 1%, 10 MG/ML (20ML VIAL) ONE (09:28)
[2016-11-06] MEDS ORDERED: VANCOMYCIN 1,000 MG VIAL (RESTRICTED TO ID ONLY) ONE (09:28)
[2016-11-06] MEDS ORDERED: BUPIVACAINE HCL/PF 2.5 MG/ML - 30 ML VIAL IJ ONE (09:28)
[2016-11-06] MEDS ORDERED: SUCCINYLCHOLINE CHLORIDE 200 MG/10 ML VIAL ONE (09:42)
[2016-11-06] MEDS ORDERED: PROPOFOL 20 ML ONE ×3 (09:42)
[2016-11-06] MEDS ORDERED: TRANEXAMIC ACID 1000 MG/10 ML VIAL ONE (09:58)
[2016-11-06] MEDS ORDERED: ONDANSETRON 4 MG/2 ML VIAL IVPUSH PRN (10:55)
[2016-11-06] MEDS: LACTATED RINGERS SOLUTION 1,000 ML IV SCH (11:51)
[2016-11-06] MEDS: MIRTAZAPINE 15 MG TABLET (FP) PO SCH (11:51)
[2016-11-06] MEDS: oxyCODONE HCL 5 MG TABLET PO PRN ×2 (11:51→21:20)
[2016-11-06] MEDS: MEMANTINE HCL 10 MG TABLET (FP) PO SCH ×2 (11:51→21:20)
[2016-11-06] MEDS: ACETAMINOPHEN 325 MG TABLET (FP) PO PRN ×2 (11:51→21:21)
[2016-11-06] MEDS: ATENOLOL 50 MG TABLET (FP) PO SCH (11:51)
[2016-11-06] MEDS: POTASSIUM CHLORIDE TABS 20 MEQ TABLET.ER (FP) PO SCH (12:08)
[2016-11-06 16:26] LABS: MCH 29.9 pg (25.7-33.7); MCHC 34.2 g/dl (32.0-36.0); MEAN CELL VOLUME 87.3 fl (80-96); MEAN PLT VOLUME 8.3 fl (7.5-11.1); PLATELET COUNT 178 K/MM3 (134-434); RDW 13.3 % (11.6-15.6); WHITE BLOOD COUNT 3.1 K/mm3 (4.0-10.0)
[2016-11-06 16:36] LABS: CREATININE 0.5 mg/dl (0.6-1.3)
--- NOTE | 2016-11-06 19:50 | PN ---
Progress Note, Physician History of Present Illness: s/p ankle surgery - Current Medication List Current Medications: Active Medications Acetaminophen (Tylenol -) 650 mg PO Q6H PRN PRN Reason: FEVER OR PAIN Last Admin: 11/06/16 11:51 Dose: 650 mg Atenolol (Tenormin -) 50 mg PO DAILY [facility] Last Admin: 11/06/16 11:51 Dose: 50 mg Atorvastatin Calcium (Lipitor -) 10 mg PO HS [facility] Last Admin: 11/05/16 21:36 Dose: 10 mg Fentanyl (Sublimaze Injection -) 25 mcg IVPUSH [id number] PRN PRN Reason: PAIN Stop: 11/09/16 10:55 Last Admin: 11/06/16 11:51 Dose: 25 mcg Lactated Ringer's (Lactated Ringers Solution) 1,000 mls @ 125 mls/hr IV ASDIR [facility] Last Admin: 11/06/16 11:51 Dose: Not Given Lorazepam (Ativan -) 1 mg PO HS PRN Memantine (Namenda -) 10 mg PO BID [facility] Last Admin: 11/06/16 11:51 Dose: 10 mg Mirtazapine (Remeron -) 30 mg PO DAILY [facility] Last Admin: 11/06/16 11:51 Dose: 30 mg Oxycodone HCl (Roxicodone -) 5 mg PO Q4H PRN PRN Reason: MILD PAIN Last Admin: 11/06/16 11:51 Dose: 5 mg Potassium Chloride (K-Dur -) 40 meq PO DAILY [facility] Last Admin: 11/06/16 12:08 Dose: 40 meq - Objective Vital Signs: Vital Signs Temperature 98 F 11/06/16 10:44 Pulse Rate 78 11/06/16 11:30 Respiratory Rate 20 11/06/16 19:31 Blood Pressure 144/56 11/06/16 11:30 O2 Sat by Pulse Oximetry (%) 94 L 11/06/16 19:31 Constitutional: Yes: No Distress HENT: Yes: Atraumatic Neck: Yes: Supple Cardiovascular: Yes: Regular Rate and Rhythm Respiratory: Yes: CTA Bilaterally Extremities: Yes: Other (left ankle in cast) Neurological: Yes: Alert Labs: CBC, BMP 11/06/16 16:05 11/06/16 16:05 INR, PTT INR 1.16 (0.82-1.09) 11/06/16 07:15 Problem List - Problems (1) Bimalleolar ankle fracture Code(s): S82.843A - DISPLACED BIMALLEOLAR FRACTURE OF UNSP LOWER LEG, INIT Qualifiers: Encounter type: initial encounter Fracture type: closed Laterality : left Qualified Code(s): S82.842A - Displaced bimalleolar fracture of left lower leg, initial encounter for closed fracture (2) Hyperlipidemia Code(s): E78.5 - HYPERLIPIDEMIA, UNSPECIFIED Qualifiers: Hyperlipidemia type: pure hypercholesterolemia Qualified Code(s): E78.00 - Pure hypercholesterolemia, unspecified; E78.0 - Pure hypercholesterolemia (3) Hypertension Code(s): I10 - ESSENTIAL (PRIMARY) HYPERTENSION Qualifiers: Hypertension type: essential hypertension Qualified Code(s): I10 - Essential (primary) hypertension (4) Syncope Code(s): R55 - SYNCOPE AND COLLAPSE Qualifiers: Syncope type: unspecified Qualified Code(s): R55 - Syncope and collapse Assessment/Plan 1.fall /syncope s/p ankle surgery prn pain meds for SNF IN AM dvt ppx 2.htn on meds 3.dementia 4.hld continue home meds PRN ATIVAN FOR ANXIETY
--- NOTE | 2016-11-06 20:45 | OP ---
DATE OF OPERATION: 11/02/2016 SURGEON: Real Dietz M.D. ANESTHESIOLOGIST: Latia Rivera M.D. TYPE OF ANESTHESIA: Regional block with monitored anesthesia care. ANTIBIOTICS: Vancomycin 1 g was given preoperatively for prophylaxis against infection. PREOPERATIVE DIAGNOSIS: Bimalleolar ankle fracture dislocation, unstable ankle fracture pattern. POSTOPERATIVE DIAGNOSIS: Bimalleolar ankle fracture dislocation, unstable ankle fracture pattern. PROCEDURE: Open reduction internal fixation of ankle bimalleolar fracture dislocation. HARDWARE USED: A single 4.0 cannulated partially threaded cancellous screw, length was 60 for fixation of the lateral malleolus, medial malleolus, reduced well. Was too small to have hardware fixation on procedure. BLOOD LOSS: Minimal. 1 g of tranexamic acid was given preoperatively. COMPLICATIONS: There were no complications. INDICATION: The patient is an 86-year-old female with a past medical history significant for dementia, twisted, fell, sustained an ankle fracture dislocation, was admitted, was seen in the emergency room, the emergency room doctor did a closed reduction. There was still significant displacement and subluxation of the ankle. Treatment options were reviewed with the patient's daughters, one whom, Leigh Ann Butler, who lives in the [facility], one who lives locally, where I spoke treatment options daughter Karla Wray, was the daughter I spoke to when the patient was initially admitted on Sunday night. We discussed treatment options including closed reduction, open reduction internal fixation. We discussed that she was getting a syncopal workup and would not be cleared until the wheel and pinion inspector had cleared her, which she was fortunately cleared this morning. Her skin looked well. I had spoken to the patient's other daughter who has her power of cart attendant, Leigh Ann Butler, who lives in [place], on her cellphone this morning, both before and after the surgery at [phone]. She had also spoken with the nurses at the hospital. I had explained the severity of the injury and in light of the patient's bone quality, inability because of her dementia, mental status to follow, I told her that we would attempt at closed reduction, but given the fracture pattern being unstable, it would be difficult to manage this in a cast in terms of holding reduction. I talked about limited internal fixation to stabilize the fracture, however accepting that the reduction will not be anatomic. Given her age and bone quality and mental status, I told the daughter I believe that this is the best option. We did discuss closed treatment with casting only. We discussed a full open reduction internal fixation with plate and screws. After thorough discussion of all the options, both patients' daughters elected to proceed with limited internal fixation. I explained the risks of include but would not be limited to infection, stiffness, painful hardware, hardware that may back out, chance that she may need the hardware removed, chance that should she develop an infection would necessitate additional surgeries, chance she could have a skin breakdown regardless of treatment, and currently she does have some area on the right thigh showing an early decubitus versus just irritation; we are going to keep a close eye on that for her. Chance that the fracture may not heal regardless of treatment, and chance she may develop significant pain and stiffness in her ankle, chance that she could have a blood clot that could spread from her legs to her lungs and even cause , and this may occur despite DVT prophylaxis. Currently she has an SCD on her nonoperative leg and has been receiving heparin which we stopped last night. We are going to start her on aspirin afterwards, 81 mg twice a day as well as getting out of bed to chair, nonweightbearing for the fracture to heal. I plan on keeping her nonweightbearing until we get some early healing, and keeping her in a long leg cast for at least 4 weeks, possibly placing her into a short leg case or removable cast boot depending on how the fracture heals in another 4-6 weeks. We are also going to use a DEXTER stocking and SCDs on her nonoperative leg. After thorough discussion of all the potential risks, benefits, and alternatives to the plan to treatment options to the patient's leg, the patient's family wish to proceed with limited internal fixation, limited open reduction to stabilize the ankle fracture. DESCRIPTION OF PROCEDURE: After administration of a regional block by the anesthesiologist, the patient is brought to the operating room where the leg was then prepped and draped in the usual sterile manner. The skin condition was excellent, there was minimal swelling. The ankle fracture was visualized under fluoroscopic image intensification after sterile prep and sterile drape, still grossly unstable. A closed reduction was performed with the fibula being held in place manually digitally while restoring the mortis and eliminating subluxation of the ankle, a single guidepin was then placed from the tip of the lateral malleolus through a stab incision all the way up to the shaft; this was then drilled with a 2.7 cannulated drill and then secured with a 60-mm, cancellous screw. This restored the stability to the mortise. The ankle was no longer dislocatable. The medial mal fragment, which is a small avulsion, actually lined up beautifully, deemed to be too small to take fixation. The stab incision was closed with 3-0 Vicryl sutures and Dermabond, the skin edges had Dermabond and hardened. A 4x4 gauze was applied and then sterile Webril. A well padded long leg cast with the ankle in neutral position and the leg bent at 90 degrees was then applied. After the cast had hardened, permanent fluoroscopic images AP, mortice, and lateral revealed excellent positioning of the fracture and the hardware. The patient was then awoken and transported to the recovery room in stable condition. He tolerated the procedure well without incident. Postoperatively, the patient will be nonweightbearing on her leg, as dictated previously. DVT prophylaxis with aspirin 81 mg b.i.d. for 4 weeks as well as early ambulation, sequential compression device, and DEXTER stocking on nonoperative leg. She will follow up in the office in 2 weeks' time, for repeat x-rays, and then at 4 weeks, and then at 8 weeks. REAL DIETZ M.D. [id number]
[2016-11-06] MEDS: ATORVASTATIN CA 10 MG TABLET (FP) PO SCH (21:20)
[2016-11-07 06:40] VITALS: BP 125/59; PULSE 80; TEMP 98.2
[2016-11-07] MEDS ORDERED: ACETAMINOPHEN 325 MG TABLET (FP) PO PRN (07:37)
[2016-11-07] MEDS ORDERED: MAGNESIUM HYDROX 2400MG/30ML ORAL SUSPENSION 30 ML CUP PO PRN (07:38)
[2016-11-07] MEDS ORDERED: ASCORBIC ACID 500 MG TABLET (FP) PO SCH (07:45)
[2016-11-07 07:53] LABS: MCH 29.5 pg (25.7-33.7); MCHC 33.6 g/dl (32.0-36.0); MEAN CELL VOLUME 87.6 fl (80-96); MEAN PLT VOLUME 8.7 fl (7.5-11.1); PLATELET COUNT 192 K/MM3 (134-434); RDW 12.7 % (11.6-15.6)
[2016-11-07 08:13] LABS: CALCIUM 8.4 mg/dl (8.4-10.2); CREATININE 0.6 mg/dl (0.6-1.3)
[2016-11-07] MEDS: oxyCODONE HCL 5 MG TABLET PO PRN (08:40)
--- NOTE | 2016-11-07 09:20 | PN ---
Progress Note, Physician Chief Complaint: Events noted Awake and alert POD#1 ORIF History of Present Illness: Patient was seen and examined. Chart was reviewed Denies chest pain, SOB or palpitations Post op ORIF - Current Medication List Current Medications: Active Medications Acetaminophen (Tylenol -) 650 mg PO Q4H PRN PRN Reason: FEVER OR PAIN Last Admin: 11/07/16 08:40 Dose: 650 mg Ascorbic Acid (Vitamin C -) 500 mg PO TID [facility] Last Admin: 11/07/16 08:41 Dose: 500 mg Aspirin (Asa -) 81 mg PO BID [facility] Stop: 12/07/16 09:59 Atenolol (Tenormin -) 50 mg PO DAILY [facility] Last Admin: 11/06/16 11:51 Dose: 50 mg Atorvastatin Calcium (Lipitor -) 10 mg PO HS [facility] Last Admin: 11/06/16 21:20 Dose: 10 mg Fentanyl (Sublimaze Injection -) 25 mcg IVPUSH [id number] PRN PRN Reason: PAIN Stop: 11/09/16 10:55 Last Admin: 11/06/16 11:51 Dose: 25 mcg Ferrous Sulfate (Feosol -) 325 mg PO BID [facility] Lactated Ringer's (Lactated Ringers Solution) 1,000 mls @ 125 mls/hr IV ASDIR [facility] Last Admin: 11/06/16 11:51 Dose: Not Given Lorazepam (Ativan -) 1 mg PO HS PRN Last Admin: 11/06/16 22:30 Dose: 1 mg Magnesium Hydroxide (Milk Of Magnesia -) 30 ml PO DAILY PRN PRN Reason: CONSTIPATION Memantine (Namenda -) 10 mg PO BID [facility] Last Admin: 11/06/16 21:20 Dose: 10 mg Mirtazapine (Remeron -) 30 mg PO DAILY [facility] Last Admin: 11/06/16 11:51 Dose: 30 mg Multivitamins/Minerals/Vitamin C (Tab-A-Vit -) 1 tab PO DAILY [facility] Non-Formulary Med ( (Pristiq 50mg)) 1 each PO DAILY [facility] Oxycodone HCl (Roxicodone -) 5 mg PO Q4H PRN PRN Reason: MILD PAIN Last Admin: 11/07/16 08:40 Dose: 5 mg Potassium Chloride (K-Dur -) 40 meq PO DAILY [facility] Last Admin: 11/06/16 12:08 Dose: 40 meq - Objective Vital Signs: Vital Signs Temperature 98.2 F 11/07/16 06:39 Pulse Rate 80 11/07/16 06:39 Respiratory Rate 20 11/07/16 06:39 Blood Pressure 125/59 11/07/16 06:39 O2 Sat by Pulse Oximetry (%) 93 L 11/07/16 06:39 Neck: Yes: Supple Cardiovascular: Yes: Regular Rate and Rhythm, Murmur (Soft SM), S1, S2 Respiratory: Yes: CTA Bilaterally Gastrointestinal: Yes: Normal Bowel Sounds, Soft. No: Tenderness Edema: No Wound/Incision: Yes: Other (Cast left lower extremity) Additional Findings/Remarks: - Review of Systems Constitutional: denies: Chills, Fever Cardiovascular: denies: Chest Pain, Palpitations, Shortness of Breath Respiratory: denies: Cough, Hemoptysis, Orthopnea, PND, SOB, SOB on Exertion Gastrointestinal: denies: Melena, Nausea. denies: Abdominal Pain, Constipation , Diarrhea, Rectal Bleeding, Vomiting Genitourinary: denies: Dysuria Neurological: reports: Syncope. denies: Dizziness, Headache, Seizure Labs: CBC, BMP 11/07/16 07:00 11/07/16 07:00 INR, PTT INR 1.16 (0.82-1.09) 11/06/16 07:15 Problem List - Problems (1) Bimalleolar ankle fracture Code(s): S82.843A - DISPLACED BIMALLEOLAR FRACTURE OF UNSP LOWER LEG, INIT Qualifiers: Encounter type: initial encounter Fracture type: closed Laterality : left Qualified Code(s): S82.842A - Displaced bimalleolar fracture of left lower leg, initial encounter for closed fracture (2) Hyperlipidemia Code(s): E78.5 - HYPERLIPIDEMIA, UNSPECIFIED Qualifiers: Hyperlipidemia type: pure hypercholesterolemia Qualified Code(s): E78.00 - Pure hypercholesterolemia, unspecified; E78.0 - Pure hypercholesterolemia (3) Hypertension Code(s): I10 - ESSENTIAL (PRIMARY) HYPERTENSION Qualifiers: Hypertension type: essential hypertension Qualified Code(s): I10 - Essential (primary) hypertension (4) Premature ventricular contractions Code(s): I49.3 - VENTRICULAR PREMATURE DEPOLARIZATION (5) Syncope Code(s): R55 - SYNCOPE AND COLLAPSE Qualifiers: Syncope type: unspecified Qualified Code(s): R55 - Syncope and collapse (6) Dementia Code(s): F03.90 - UNSPECIFIED DEMENTIA WITHOUT BEHAVIORAL DISTURBANCE Qualifiers: Dementia type: Alzheimer's disease Alzheimer's disease onset: early- onset Dementia behavioral disturbance: without behavioral disturbance Qualified Code(s): G30.0 - Alzheimer's disease with early onset; F02.81 - Dementia in other diseases classified elsewhere with behavioral disturbance Assessment/Plan 1. Post fall with likely syncopal episode 2. Left ankle fracture post ORIF POD#1 3. HTN 4. Hyperlipidemia 5. Dementia - Alzheimers type 6. Premature ventricular contraction PLAN: 1. Continue present management 2. Post op care. Await further rehabilitation and continue PT 3. Continue ASA 81 mg qd, Atenolol 50 mg qd and Lipitor 10 mg qhs 4. Analgesia as needed Further plans are to follow William Rivera MD
[2016-11-07] MEDS ORDERED: PRISTIQ 50 MG PO SCH (10:00)
[2016-11-07] MEDS ORDERED: ASPIRIN 81 MG CHEWABLE TABLETS PO SCH (10:00)
[2016-11-07] MEDS ORDERED: MULTIVITAMINS (DAILY MVI) TABLET (FP) PO SCH (10:00)
[2016-11-07] MEDS ORDERED: FERROUS SO4 325 MG TABLET (FP) PO SCH (10:00)
[2016-11-07] MEDS: MIRTAZAPINE 15 MG TABLET (FP) PO SCH (10:32)
[2016-11-07] MEDS: MEMANTINE HCL 10 MG TABLET (FP) PO SCH (10:33)
[2016-11-07] MEDS: POTASSIUM CHLORIDE TABS 20 MEQ TABLET.ER (FP) PO SCH (10:40)
[2016-11-07] MEDS: ATENOLOL 50 MG TABLET (FP) PO SCH (10:41)
[2016-11-07] MEDS: LACTATED RINGERS SOLUTION 1,000 ML IV SCH (10:42)
--- NOTE | 2016-11-08 13:35 | DS ---
Physical Examination Vital Signs: Vital Signs Temperature 98.2 F 11/07/16 06:39 Pulse Rate 80 11/07/16 06:39 Respiratory Rate 20 11/07/16 09:00 Blood Pressure 125/59 11/07/16 06:39 O2 Sat by Pulse Oximetry (%) 93 L 11/07/16 09:00 Labs: CBC, BMP 11/07/16 07:00 11/07/16 07:00 Discharge Summary Reason For Visit: TELE R ANKLE FRACTURE Condition: Fair - Instructions Disposition: HALF-WAY FACILITY - Home Medications Comprehensive Discharge Medication List: Ambulatory Orders Memantine HCl [Namenda -] 10 mg PO BID 02/18/14 Ascorbate Calcium [Vitamin C] 500 mg PO DAILY 01/04/16 Aspirin [ASA -] 81 mg PO HS 01/04/16 Atenolol [Tenormin -] 50 mg PO DAILY 01/04/16 Cyanocobalamin (Vitamin B-12) [Vitamin B-12] 1,000 mcg PO DAILY 01/04/16 Desvenlafaxine Succinate [Pristiq] 50 mg PO DAILY 01/04/16 Mirtazapine 30 mg PO DAILY 01/04/16 Multivitamins [Multivit ([facility] Formulary)] 1 tab PO DAILY 01/04/16 Ewell-3S/Dha/Epa/Fish Oil [Fish Oil 1,200 mg Softgel] 1 each PO DAILY 01/04/16 Atorvastatin Ca [Lipitor] 10 mg PO HS 11/02/16 dc to snf
== END 2016-11-07 12:21 | DRG 493 ==
LOC: FER 17:31 → FM/S 21:28
PROVIDERS: ADMIT Internal Medicine; ATTEND Internal Medicine
PROC: 0QSK04Z Reposition Left Fibula with Internal Fixation Device, Open Approach (ICD-10-PCS; principal; 2016-11-02)
PROC: 0QSH04Z Reposition Left Tibia with Internal Fixation Device, Open Approach (ICD-10-PCS; 2016-11-02)
DX: S82.842A Displaced bimalleolar fracture of left lower leg, initial encounter for closed fracture (principal); E87.1 Hypo-osmolality and hyponatremia; I10 Essential (primary) hypertension; J44.9 Chronic obstructive pulmonary disease, unspecified; G30.9 Alzheimer's disease, unspecified; F02.80 Dementia in other diseases classified elsewhere, unspecified severity, without behavioral disturbance, psychotic disturbance, mood disturbance, and anxiety; F32.9 Major depressive disorder, single episode, unspecified; R55 Syncope and collapse; E78.5 Hyperlipidemia, unspecified; I49.3 Ventricular premature depolarization; W18.39XA Other fall on same level, initial encounter; Y93.89 Activity, other specified; Y92.090 Kitchen in other non-institutional residence as the place of occurrence of the external cause; Y99.8 Other external cause status
CPT/HCPCS: 36415; 70450-TC; 71010-TC; 73610-TC-LT; 73630-TC-LT; 76000-TC; 80048; 80053; 81003; 81015; 82550; 82553; 83735; 84484; 85025; 85027; 85610; 86850; 86900; 86901; 87045; 87046; 87177; 87205; 87207; 87209; 87324; 87328; 87329; 87449; 93005; 93306-TC; 97116-GP; 97161-GP; 99285-25; J1644